=== PATIENT | male | born 1990 | race African-American/Black ===

== ENCOUNTER 2017-02-19 05:17 | Emergency (ER) | payer SELFPAY ==
[~2017-02-19] VITALS: Ht 177.8 cm; Wt 86.2 kg
[2017-02-19 05:17] VITALS: BP_SYST 149
[2017-02-19 05:53] VITALS: BP_SYST 135
== END 2017-02-19 05:53 | disposition home or self-care (01) ==
LOC: SED 05:17
DX: Z04.1 Encounter for examination and observation following transport accident (principal); S20.20XA Contusion of thorax, unspecified, initial encounter; V89.2XXA Person injured in unspecified motor-vehicle accident, traffic, initial encounter; Y93.89 Activity, other specified; Y92.89 Other specified places as the place of occurrence of the external cause; Y99.8 Other external cause status
CPT/HCPCS: 99283